=== PATIENT | female | born 1940 | race Caucasian/White ===

== ENCOUNTER 2019-12-05 07:25 | Day surgery (SDC) | payer OTHER ==
[~2019-12-05] VITALS: Ht 162.6 cm; Wt 74.8 kg
--- NOTE | ~2019-12-05 | O ---
[facility] [place] [address] OPERATIVE REPORT Name: SHAHZAD LARES Room #: 150-8 [facility]..#: [id number] Admission: 12/05/19 Attend Phys: Blake Lynne MD Discharge: Date of : 42 Report #: [id number] THIS REPORT FOR: cc: Soumya Baptiste,Blake Mckeon MD ~ THIS REPORT FOR: //name// CC: Shaq Radford DATE OF SERVICE: 12/05/2019 PREOPERATIVE DIAGNOSIS: Bilateral lower lid fat prolapse. POSTOPERATIVE DIAGNOSIS: Bilateral lower lid fat prolapse. OPERATION PERFORMED: Bilateral transconjunctival lower lid blepharoplasty. ANESTHESIA: Local with IV sedation. COMPLICATIONS: None. INDICATIONS FOR SURGERY: This patient has bilateral lower lid fat prolapse that is cosmetically unacceptable. The current procedure is undertaken in order to improve the cosmetic appearance of the lower lids. Informed consent was obtained to include but not limited to the risk for loss of vision, bleeding, infection, failure to improve the problem, need for further surgery and double vision. DESCRIPTION OF PROCEDURE: This patient was taken to the operating room, where 2% Xylocaine with epinephrine mixed with equal parts of 0.75% Marcaine with Wydase was administered transcutaneously to each lower lid. The patient was then prepped and draped in the usual sterile fashion. The left lower lid was then everted and a transconjunctival incision was made with a [place] needle approximately 3 mm inferior to the lower border of the tarsal plate. It was dissected out across the width of the lid. A 4-0 black silk suture was then passed through the lower lid retractors and attached to the superior drape to provide traction on the lower lid fat and protection for the cornea. The dissection was then carried out in a preseptal plane until the inferior orbital rim was encountered. The 3 fat pads of the lower lid were then identified. The redundant fat was teased free, clamped with a Maryam clamp and removed with high-temp cautery. The inferior oblique muscle was identified and undamaged throughout the dissection. [facility] [address] [place] [address] OPERATIVE REPORT Name: SHAHZAD LARES Chaparro Room #: 150-8 [facility].#: [id number] Admission: 12/05/19 Attend Phys: Blake Lynne MD Discharge: Date of : 42 Report #: [id number] Attention was then turned to the right side, where the same procedure was performed. The lower lid retractors were then redeposited into the inferior fornix as the lid was distracted superiorly. Maxitrol drops were then placed in both eyes. The patient had cold compresses applied to the unoperated eye during the procedure. The patient was then transported to the recovery area, having tolerated the procedure well, with no anesthesia or operative complications being noted. By: [id number] Blake Lynne MD /sherita
--- NOTE | ~2019-12-05 | O ---
[facility] [place] [address] OPERATIVE REPORT Name: SHAHZAD LARES Room #: 150-8 [facility]..#: [id number] Admission: 12/05/19 Attend Phys: Blake Lynne MD Discharge: Date of : 42 Report #: [id number] THIS REPORT FOR: cc: Soumya Baptiste Stephanie P. DO White, William L. 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 PREOPERATIVE DIAGNOSIS: Bilateral lower lid entropion. POSTOPERATIVE DIAGNOSIS: Bilateral lower lid entropion. OPERATION PERFORMED: Bilateral lower lid entropion repair. ANESTHESIA: Local with IV sedation. COMPLICATIONS: None. INDICATIONS FOR PROCEDURE: This patient has bilateral lower lid entropion with chronic irritation and discharge. The current procedures are being undertaken in order to improve the patient's level of comfort and visual function. Informed consent was obtained to include but not limited to the loss of vision, bleeding, infection, scarring, failure to improve the problem and need for further surgery. DESCRIPTION OF OPERATION: The patient was taken to the operating room, where 2% Xylocaine with epinephrine mixed with equal parts of 0.75% Marcaine with Wydase was administered transcutaneously and transconjunctivally to each lower lid and lateral canthal area. The patient was then prepped and draped in the usual sterile fashion. A Maryam clamp was used to clamp the left lateral canthus, following which a sharp canthotomy and cantholysis were performed. Hemostasis was achieved with a monopolar cautery, as it was throughout the case. A tarsal strip was prepared laterally, removing the lash bearing portion of the redundant lid margin and the redundant tarsal plate. A transconjunctival dissection was then undertaken just inferior to the lower border of the tarsal plate. The lower lid retractors were disinserted from the inferior border of the tarsal [address] [address] OPERATIVE REPORT Name: LUDASHAHZAD Room #: 150-8 [facility]..#: [id number] Admission: 12/05/19 Attend Phys: Blake Lynne MD Discharge: Date of : 42 Report #: [id number]. The lower lid retractors were then advanced and reattached to the anterior surface of the tarsal plate with mattress 5-0 chromic sutures passed transconjunctivally and secured in the infraciliary margin. The tarsal strip was then secured laterally with 2 interrupted 5-0 Prolene sutures. The subcutaneous structures and the skin were then closed with multiple interrupted 6-0 plain gut sutures so the lateral canthal angle was sharply reformed. The wounds were then cleaned and dressed with ophthalmic antibiotic ointment. The patient was then transported to the recovery area, having tolerated the procedure well with no anesthetic or operative complications being noted. By: [id number] Blake Lynne MD /nt
[~2019-12-05 07:25] MED LIST: APPLE CIDER VI500 MG PO; APPLE CIDER VI600 MG PO; BIOTIN5000 MCG PO; CALCIUM CARBON500 MG PO; LEVO-T75 MCG PO; LUTEIN-ZEAXANT1 EAC1 PO; PRALUENT P150 MG/1 M SUBQ; TIROSINT88 MCG PO; VITAMIN D350 MC1 PO
[2019-12-05 09:17] VITALS: BP 121/61
== END 2019-12-05 12:48 | disposition home or self-care (01) ==
LOC: OR 07:25 → TBA 07:27 → OR 10:00
DX: H02.005 Unspecified entropion of left lower eyelid (principal); H02.002 Unspecified entropion of right lower eyelid; H05.89 Other disorders of orbit; E78.00 Pure hypercholesterolemia, unspecified; E03.9 Hypothyroidism, unspecified; K21.9 Gastro-esophageal reflux disease without esophagitis; Z98.890 Other specified postprocedural states; Z79.899 Other long term (current) drug therapy; Z90.49 Acquired absence of other specified parts of digestive tract; Z98.41 Cataract extraction status, right eye; Z98.42 Cataract extraction status, left eye; Z96.1 Presence of intraocular lens; Z88.2 Allergy status to sulfonamides
CPT/HCPCS: 50010; 50101; 50386; 50398; 51636; 56527; 56531; 62110; 62850; 64037; 70005